=== PATIENT | female | born 1935 | race Caucasian/White ===

== ENCOUNTER 2017-12-02 18:40 | Emergency (ER) | payer MEDICARE, OTHER ==
[~2017-12-02] VITALS: Ht 165.1 cm; Wt 77.1 kg
[2017-12-02] MEDS ORDERED: HYDR25TA4 PO (18:58)
[2017-12-02] MEDS ORDERED: SOLI5TAB2 PO (18:58)
[2017-12-02] MEDS ORDERED: CALC1TAB91 PO (18:58)
[2017-12-02] MEDS ORDERED: VITAMIN B PO (18:58)
[2017-12-02] MEDS ORDERED: ERGO500040 PO (18:58)
[2017-12-02] MEDS ORDERED: ASPI81TA31 PO (18:58)
[2017-12-02] MEDS ORDERED: VALS1TAB7 PO (18:58)
[2017-12-02] MEDS ORDERED: ALEN70TA3 PO (18:58)
[2017-12-02] MEDS ORDERED: CLONIDINE HCL 0.1 MG TABLET PO ONE (20:45)
--- NOTE | 2017-12-02 21:04 | NUR ---
Patient discharged to home in stable conditon. Written and verbal after care instructions given. Patient verbalizes understanding of instructions.
[2017-12-02] MEDS ORDERED: CLONIDINE HCL 0.1 MG TABLET ONE (21:06)
== END 2017-12-02 21:07 | disposition home or self-care (01) ==
LOC: ER 18:41
DX: I10 Essential (primary) hypertension (principal); Z79.82 Long term (current) use of aspirin
CPT/HCPCS: 93005; 99283; A4663